=== PATIENT | male | born 1960 | race Caucasian/White ===

== ENCOUNTER → 2016-10-14 | Outpatient (CLI) | payer OTHER ==
--- NOTE | 2016-10-14 13:56 | US ---
EXAMINATION TYPE: US kidneys/renal and bladder DATE OF EXAM: 10/14/2016 1:37 PM COMPARISON: NONE CLINICAL HISTORY: Urinary Retention R33.9. Urinary retention, pt has in-dwelling catheter EXAM MEASUREMENTS: Right Kidney: 11.4 x 4.8 x 5.2 cm Left Kidney: 11.6 x 5.3 x 4.8 cm Right Kidney: wnl, no evidence of hydro Left Kidney: No evidence of hydro, possible two renal calculi at lower pole 6 & 7 mm in size Bladder: Cath in place There are 2 questionable nonobstructing calculi in the lower pole of the left kidney measuring 6 and 7 mm respectively. There is a 1.9 cm echogenic focus within the right lobe of the liver which may represent a small derian ngioma. IMPRESSION: 1. Questionable hemangioma within the right lobe of the liver. A CT scan of the abdomen or MR of the abdomen could BE performed to confirm this. 2. Nonobstructing left-sided nephrolithiasis.
== END | disposition home or self-care (01) ==
LOC: RADUSWWP 13:24
PROVIDERS: ATTEND Urology
DX: N20.0 Calculus of kidney (principal)
CPT/HCPCS: 76770

== ENCOUNTER → 2017-10-27 | Outpatient (CLI) | payer OTHER ==
--- NOTE | 2017-10-27 10:40 | CT ---
EXAMINATION TYPE: CT sinus wo con DATE OF EXAM: 10/27/2017 COMPARISON: NONE HISTORY: Sinusitis CT DLP: 632 mGycm. Automated Exposure Control for Dose Reduction was Utilized. TECHNIQUE: CT scan of the sinuses is performed without contrast, axial images are obtained, coronal r eformatted images are also reviewed. FINDINGS: The paranasal sinuses including the frontal, ethmoid, sphenoid, and maxillary sinuses bila terally are remarkable for mucosal thickening in the maxillary sinuses, some minimal lobular soft tis padmini at the inferior maxillary sinuses could represent inflammatory change or small polyps, ethmoid ai r cells, sphenoid sinus, frontal sinus are well aerated. The ostiomeatal complex is patent bilateral ly on the coronal images. Bailey bullosa present on the left. Visualized portion of mastoid air cells show no abnormal opacification. The globes are intact bilate rally. There is no erosion of the scutum, auditory ossicles show symmetric appearance. Temporomandib ular joints are intact. IMPRESSION: Mild inflammatory change as described.
== END | disposition home or self-care (01) ==
LOC: RADCTMAIN 08:38
PROVIDERS: ATTEND Family Medicine
DX: J32.9 Chronic sinusitis, unspecified (principal)
CPT/HCPCS: 70486

== ENCOUNTER → 2018-01-18 | Outpatient (CLI) | payer OTHER ==
--- NOTE | 2018-01-18 11:06 | US ---
EXAMINATION TYPE: US liver DATE OF EXAM: 01/18/2018 COMPARISON: Renal ultrasound 10/14/2016 CLINICAL HISTORY: Chronic Hep C B18.2. EXAM MEASUREMENTS: Liver Length: 14.9 cm Gallbladder Wall: 0.2 cm CBD: 0.4 cm Right Kidney: 12.2 x 4.0 x 4.8 cm Pancreas: Obscured by bowel gas Liver: Coarse, heterogeneous echotexture. Hypoechoic solid area visualized right lobe measuring 2.1 x 2.1 x 2.1 cm. Previous measured 2.2 x 1.9 x 1.9 cm on 10/14/2016 Gallbladder: Stones visualized Evidence for sonographic Person's sign: No CBD: wnl Right Kidney: No hydronephrosis or masses seen Heterogeneous hyperechoic liver is identified. No intrahepatic ductal dilatation is seen. Evaluation for focal masses suboptimal due to the heterogeneity. Technologist stuart 2.1 cm round hypoechoic lesi on on current study, previously visualized 2.2 cm hyperechoic lesion is not seen on images saved. Gallbladder redemonstrates small mobile shadowing stones. No suspicious wall thickening or surroundin g fluid is noted. IMPRESSION: 1. Redemonstration of gallstones without secondary ultrasound evidence for acute cholecystitis. 2. Redemonstration of heterogeneous hyperechoic appearance of liver which could reflect diffuse fatty infiltration or underlying hepatocellular disease. Newly visualized 2.0 cm hypoechoic possible solid lesion. Further investigation with liver protocol contrast enhanced CT or MRI is advised.
== END | disposition home or self-care (01) ==
LOC: RADUSWWP 09:51
PROVIDERS: ATTEND Internal Medicine Gastroenterology
DX: K80.20 Calculus of gallbladder without cholecystitis without obstruction (principal); B18.2 Chronic viral hepatitis C
CPT/HCPCS: 76705

== ENCOUNTER → 2018-03-17 | Outpatient (CLI) | payer OTHER ==
--- NOTE | 2018-03-19 01:48 | MR ---
EXAMINATION TYPE: MR liver wo/w con DATE OF EXAM: 03/17/2018 COMPARISON: None HISTORY: Liver lesion, Abn US CONTRAST: Standard multiplanar, multisequence MRI departmental protocol utilizing 10 mL intravenous Gadavist ga dolinium contrast. FINDINGS: There is a sharply marginated rounded 2 cm lesion in the right lobe of the liver. This is h igh signal on T2 images and shows some nodular peripheral enhancement on the contrast images. This is consistent with hemangioma. There is a small area of nodular enhancement also in the subcapsular pos terior right lobe of the liver this probably a 1 cm hemangioma. The delayed images show progressive e nhancement of the lesions. Pancreas appears normal. Spleen appears normal. There is no adrenal mass. Kidneys show satisfactory c ontrast opacification. There is no hydronephrosis. There is no retroperitoneal adenopathy. There is n o sign of ascites. There is no sign of pleural effusion. The bile ducts are not dilated. Gallbladder appears normal. IMPRESSION: There are 2 small liver lesions with features consistent with hemangioma.
== END ==
LOC: RADMRIMAIN 12:03
PROVIDERS: ATTEND Physician Assistant
DX: K76.9 Liver disease, unspecified (principal)
CPT/HCPCS: 74183; A9581

== ENCOUNTER → 2018-05-16 | Outpatient (CLI) | payer OTHER ==
[2018-05-16 13:10] LABS: Basophils # (A) 0.1 k/uL (0-0.2); Basophils % (A) 1 %; Eosinophils # (A) 0.2 k/uL (0-0.7); Eosinophils % (A) 3 %; HCT 46.2 % (39.0-53.0); HGB 15.4 gm/dL (13.0-17.5); Lymphocytes # (A) 2.1 k/uL (1.0-4.8); Lymphocytes % (A) 30 %; MCH 31.2 pg (25.0-35.0); MCHC 33.4 g/dL (31.0-37.0); MCV 93.6 fL (80.0-100.0); Mean Platelet Volume 7.1; Monocytes # (A) 0.4 k/uL (0-1.0); Monocytes % (A) 6 %; Neutrophils # (A) 4.1 k/uL (1.3-7.7); Neutrophils % (A) 57 %; Platelet Count 220 k/uL (150-450); RBC 4.94 m/uL (4.30-5.90); WBC 7.2 k/uL (3.8-10.6)
[2018-05-16 21:03] LABS: Albumin 4.6 g/dL (3.80-4.90); Bilirubin, Conjugated 0.2 mg/dL (0.20-0.40); Bilirubin,Unconjugated 0.5 mg/dL; Globulin 2.3 g/dL (2.1-3.7); Total Bilirubin 0.7 mg/dL (0.2-1.2); Total Protein 6.9 g/dL (6.2-8.2)
[2018-05-17 15:29] LABS: Hepatits C Virus RNA DETECTED (Not detected); Hepatits C Virus RNA, Quant 105 IU/mL (<12); LOG HCV IU/mL 2.02 (<1.08)
== END | disposition home or self-care (01) ==
LOC: LABWHC1 12:08
PROVIDERS: ATTEND Physician Assistant
DX: B18.2 Chronic viral hepatitis C (principal)
CPT/HCPCS: 36415; 80076; 85025; 87522

== ENCOUNTER → 2018-05-24 | Outpatient (CLI) | payer OTHER ==
--- NOTE | 2018-05-25 09:00 | US ---
EXAMINATION TYPE: US kidneys/renal and bladder DATE OF EXAM: 05/24/2018 COMPARISON: Right kidney on the ultrasound of CLINICAL HISTORY: N20.2 Calculus of kidney and ureter. h/o left renal stones, no symptoms EXAM MEASUREMENTS: Right Kidney: 11.3 x 5.3 x 4.9 cm Left Kidney: 11.4 x 4.5 x 6.2 cm Right Kidney: No hydronephrosis or masses seen Left Kidney: 2 echogenic foci seen inferior pole, 1.3cm and 1.4cm These are non-shadowing, other et iologies should be considered. These were present previously and 2017. Bladder: wnl Bilateral Jets seen: not seen IMPRESSION: Nonobstructing renal stones inferior pole left kidney.
== END | disposition home or self-care (01) ==
LOC: RADUSWWP 16:23
PROVIDERS: ATTEND Family Medicine
DX: N20.0 Calculus of kidney (principal)
CPT/HCPCS: 76770

== ENCOUNTER → 2018-05-28 | Outpatient (CLI) | payer OTHER ==
--- NOTE | 2018-05-28 09:37 | MR ---
EXAMINATION TYPE: MR lumbar spine wo con DATE OF EXAM: 05/28/2018 9:23 AM COMPARISON: NONE HISTORY: Back pain Multiplanar, MultiSpin echo imaging of the lumbar spine was performed. L1-L2: Normal disc appearance without desiccation. No herniation, protrusion or disc bulging. No ca nal stenosis is present. Foramina are patent bilaterally. L2-L3: Normal disc appearance without desiccation. No herniation, protrusion or disc bulging. No ca nal stenosis is present. Foramina are patent bilaterally. L3-L4: Normal disc appearance without desiccation. No herniation, protrusion or disc bulging. No ca nal stenosis is present. Foramina are patent bilaterally. L4-L5: Moderate disc desiccation noted. Posterocentral disc bulge with annular tear. Mild effacement ventral thecal sac. No evidence for central stenosis or lateral recess stenosis. Visualized foramina are patent. Mild facet joint arthropathy. L5-S1: Moderate disc desiccation noted. Left paracentral disc protrusion results in left lateral rece ss stenosis. No central stenosis. Visualized foramina are patent bilaterally. Facet joint arthropathy noted. Lumbar segments are intact. No paraspinal masses are identified. Conus medullaris has a normal appe arance. IMPRESSION: 1. Degenerative disc disease as noted. 2. Left paracentral disc protrusion L5-S1 resulting in left lateral recess stenosis.
== END ==
LOC: RADMRIMAIN 08:48
PROVIDERS: ATTEND Family Medicine
DX: M51.17 Intervertebral disc disorders with radiculopathy, lumbosacral region (principal)
CPT/HCPCS: 72148

== ENCOUNTER → 2018-08-10 | Outpatient (CLI) | payer OTHER ==
--- NOTE | 2018-08-10 14:46 | XR ---
Abdomen HISTORY: Left-sided pain, calculus of kidney Frontal view of the abdomen on 2 images, no comparisons There is a partial staghorn calculus is suspected at the lower pole of the left kidney measuring appr oximately 2.2 x 1.2 cm. Lung bases are not included on exam. Scattered calcifications are present wit hin the pelvis. No pneumoperitoneum or bowel obstruction. Bone mineralization is normal. Slight spina l curvature. IMPRESSION: Left-sided nephrolithiasis.
== END ==
LOC: RADXRMAIN 09:31
PROVIDERS: ATTEND Urology
DX: N20.0 Calculus of kidney (principal)
CPT/HCPCS: 74018

== ENCOUNTER → 2018-09-17 | Outpatient (CLI) | payer OTHER ==
--- NOTE | 2018-09-17 08:46 | XR ---
EXAMINATION TYPE: XR KUB DATE OF EXAM: 09/17/2018 HISTORY: Pain Comparison: 08/10/2018. Single KUB is submitted for interpretation. Findings: Right renal calculi: None Visualized. Right ureteral calculi: None Visualized. Left renal calculi: Multiple fragmented calcifications are seen lower pole left kidney small in size and on prior examination. Left ureteral calculi: Interval calcifications noted left distal ureter. Calcifications total approx imately 5-6 in number. Pelvic calcifications: None Visualized. Bowel gas pattern is unremarkable. No free air. No mass effects. IMPRESSION: 1. Suspect interval lithotripsy with multiple smaller fragmented calcifications lower pole left kidne y relative to prior examination. Also distal left ureteral calculi identified. Correlate clinically.
== END ==
LOC: RADXRMAIN 08:11
PROVIDERS: ATTEND Family Medicine
DX: N20.1 Calculus of ureter (principal)
CPT/HCPCS: 74018

== ENCOUNTER 2018-09-24 09:58 | Day surgery (SDC) | payer OTHER ==
[2018-09-20 14:05] VITALS: BMI 30.3
[~2018-09-24 09:58] MED LIST: LACTATED RINGERS 1,000 ML IV SCH; LIDOCAINE 1% 20 ML VIAL (10MG/ML) FOR IV START INTRADERMA PRN; MIDAZOLAM (PF) 2 MG/2 ML VIAL IV PRN
[2018-09-24 10:22] VITALS: TEMP 98.5
[2018-09-24] MEDS ORDERED: LIDOCAINE 1% INJ 10MG/ML (20 ML MDV) ONE (11:41)
[2018-09-24] MEDS ORDERED: PROPOFOL 10 MG/ML 20 ML VIAL IV ONE (11:41)
--- NOTE | 2018-09-24 12:13 | P.PCN ---
Date of Procedure: 09/24/18 Procedure(s) Performed: Procedure: Total colonoscopy and biopsy. Preoperative diagnosis: Screening for neoplasia. Postoperative diagnosis: 1. Mild diverticulosis with no evidence of acute diverticulitis or strictures. 2. Diminutive rectal polyp biopsied, but no large polyps or cancer. Preparation: HalfLytely prep. Sedation: Was provided by anesthesia. Brief clinical history: The patient is a 58-year-old male who is scheduled for this evaluation for screening for neoplasia age being his risk factor. He had no prior exam. The patient has no abdominal complaints, bleeding or anemia. There is family history of cancer in both parents but is not sure if it was colon cancer or not. Procedure: With the patient on his left lateral decubitus position and after informed consent and adequate sedation, the perianal area was inspected and it did not show any fissures or fistulas. There were no masses felt on digital rectal examination. The Olympus CFH 190L video colonoscope was then inserted in the rectum in the usual fashion and advanced to the cecum. The mucosa appeared healthy. A diminutive polyp was seen in the rectum close to the anorectal junction which was biopsied, but there were no large polyps or tumors. There was occasional diverticular orifices noted on the right side and on the sigmoid with no evidence of acute diverticulitis or strictures. I retroflexed the endoscope in the rectum before the endoscope was withdrawn. The patient tolerated the procedure well. Plan: The patient was reassured. Discussed dietary measures. He will follow up with you as planned and I recommended repeat exam in 5 years.
[2018-09-24 12:47] VITALS: BP 144/91; PULSE 60; RESP 16
== END 2018-09-24 13:02 | disposition home or self-care (01) ==
LOC: ORWHC2ENDO 09:58
DX: Z12.11 Encounter for screening for malignant neoplasm of colon (principal); K57.90 Diverticulosis of intestine, part unspecified, without perforation or abscess without bleeding; K62.1 Rectal polyp; Z80.9 Family history of malignant neoplasm, unspecified; Z86.73 Personal history of transient ischemic attack (TIA), and cerebral infarction without residual deficits; K21.9 Gastro-esophageal reflux disease without esophagitis; G43.909 Migraine, unspecified, not intractable, without status migrainosus; Z85.46 Personal history of malignant neoplasm of prostate
CPT/HCPCS: 88305; 45380; J2001; J2704

== ENCOUNTER → 2018-10-04 | Outpatient (CLI) | payer OTHER ==
--- NOTE | 2018-10-04 08:22 | CT ---
EXAMINATION TYPE: CT sinus wo con DATE OF EXAM: 10/04/2018 COMPARISON: 10/27/2017 HISTORY: 58-year-old male acute sinusitis, Sinus headaches CT DLP: 624 mGycm Automated exposure control for dose reduction was used. TECHNIQUE: Noncontrast axial views of the paranasal sinuses were obtained. Coronal reconstructions pe rformed. FINDINGS: PARANASAL SINUSES: Trace mucosal thickening along the floors of the maxillary sinuses and along the region of the bilate ral maxillary antra. Additional trace mucosal thickening within the ethmoid air cells. The frontal and sphenoid sinuses are well pneumatized. There is no air-fluid level. Reactive lynette- osteogenesis is not seen. There is no destruction of the osseous pulido of the paranasal sinuses. THE NASAL CAVITY: The osteomeatal complexes are patent. The nasal septum shows slight undulation. The imaged brain shows mild generalized cortical atrophy. Orbits are normal in appearance. Mastoid air cells and middle ear cavities are well pneumatized. Reformatted images confirm above findings. IMPRESSION: Trace chronic maxillary and ethmoid sinus disease. No air-fluid level to suggest acute sinusitis.
== END | disposition home or self-care (01) ==
LOC: RADCTMAIN 07:53
PROVIDERS: ATTEND Family Medicine
DX: J01.90 Acute sinusitis, unspecified (principal)
CPT/HCPCS: 70486

== ENCOUNTER → 2018-10-18 | Outpatient (CLI) | payer OTHER ==
--- NOTE | 2018-10-18 09:53 | XR ---
EXAMINATION TYPE: XR KUB DATE OF EXAM: 10/18/2018 COMPARISON: 09/17/2018 HISTORY: Post lithotripsy TECHNIQUE: One view abdominal series FINDINGS: The osseous structures are intact. The bowel gas pattern is nonspecific. Hypertrophic spurring of th e vertebral column noted. Left kidney: There are greater than 10 fragment seen involving the lower pole of the left kidney with numerous renal calculi largest measuring approximately 4 mm in diameter. Appears to be fragmentation relative to the prior exam. Right kidney: No suspicious calcific Pelvis: Calcifications in the pelvis appear to be predominantly related to vascular phleboliths. De Leon jen, there is one calcification seen within the left hemipelvis which may be the level of the left UV J measuring a diameter 3 mm. Additional calcifications in the lower pelvis may overlie prostate or po ssibly related to bladder calculi. Metallic density overlying the left inferior pubic ramus may be superficial to the patient rather tonio n foreign body correlate clinically. IMPRESSION: 1. There are greater than 10 calcifications seen involving the lower pole left kidney which appear to be fragmented relative to the prior exam. 2. No suspicious calcifications within the mid or proximal ureter. 3. There is a new calcification measuring 3 mm in diameter at the expected location of the left UVJ.
== END | disposition home or self-care (01) ==
LOC: RADXRMAIN 08:33
PROVIDERS: ATTEND Urology
DX: N20.0 Calculus of kidney (principal)
CPT/HCPCS: 74018

== ENCOUNTER → 2018-11-20 | Outpatient (CLI) | payer OTHER ==
--- NOTE | 2018-11-20 10:17 | XR ---
KUB HISTORY: Left-sided kidney stone Frontal KUB on 2 images correlated to prior KUB 10/18/2018 Calcifications are present overlying the lower pole left kidney similar to prior exam. Largest fragme nt measures approximately 6 mm. There may be 6 or 7 fragments present at this level which is likely r educed in number. Multiple calcifications are present within the pelvis similar which are no longer s een as compared to prior exam. IMPRESSION: Interval lithotripsy.
== END | disposition home or self-care (01) ==
LOC: RADXRMAIN 09:46
PROVIDERS: ATTEND Urology
DX: N20.0 Calculus of kidney (principal); Z98.890 Other specified postprocedural states
CPT/HCPCS: 74018

== ENCOUNTER → 2018-11-21 | Outpatient (CLI) | payer OTHER ==
[2018-11-21 11:57] LABS: African American GFR (CKD) >90 (>60 ml/min/1.73 sqM); Anion Gap 7 mmol/L; Blood Urea Nitrogen 20 mg/dL (9-20); Calcium 9.7 mg/dL (8.4-10.2); Carbon Dioxide 28 mmol/L (22-30); Chloride 105 mmol/L (98-107); Glucose 107 mg/dL (74-99); Potassium 4.9 mmol/L (3.5-5.1); Sodium 140 mmol/L (137-145)
[2018-11-21 12:28] LABS: HCT 43.9 % (39.0-53.0); HGB 14.5 gm/dL (13.0-17.5); MCH 30.4 pg (25.0-35.0); Mean Platelet Volume 7.4; Platelet Count 191 k/uL (150-450); RBC 4.77 m/uL (4.30-5.90); RDW 13.4 % (11.5-15.5); WBC 7.9 k/uL (3.8-10.6)
[2018-11-21 12:59] LABS: Eosinophils # (M) 0.47 k/uL (0-0.7); Lymphocytes # (M) 3.08 k/uL (1.0-4.8); Monocytes # (M) 0.55 k/uL (0-1.0); Neutrophils # (M) 3.79 k/uL (1.3-7.7); Neutrophils % (M) 48 %; Nucleated Red Blood Cells 0 /100 WBC (0-0); Total Cells Counted 100
== END | disposition home or self-care (01) ==
LOC: LABPAT 10:46
PROVIDERS: ATTEND Urology
DX: Z01.812 Encounter for preprocedural laboratory examination (principal); N20.0 Calculus of kidney
CPT/HCPCS: 36415; 80048; 85025

== ENCOUNTER 2018-11-26 07:05 | Day surgery (SDC) | payer OTHER ==
[2018-11-22 09:46] VITALS: BMI 30.3
--- NOTE | 2018-11-22 17:23 | P.GSHP ---
History of Present Illness H&P Date: 11/22/18 Chief Complaint: Left flank pain The patient is a 58-year-old white female who presented with left flank pain. A KUB x-ray showed a 12 x 22 mm left lower pole renal calculus. He underwent ESWL on 09/10/2018. He has passed multiple calculus fragments. The calculus was com posed predominately of calcium oxalate monohydrate. He is now asymptomatic. The most recent KUB x-ray shows a 6 x 10 mm left lower pole renal fragment, and he has elected to undergo repeat ESWL. - Constitutional Constitutional: Denies chills, Denies fever - Genitourinary (Male) Genitourinary: Denies dysuria, Denies flank pain, Denies hematuria Past Medical History Past Medical History: CVA/TIA, GERD/Reflux, Prostate Disorder Additional Past Medical History / Comment(s): migraines, "stroke 7 yrs ago-did not go to hospital"-no residual effects, hx kidney stones History of Any Multi-Drug Resistant Organisms: None Reported Past Surgical History: Back Surgery Additional Past Surgical History / Comment(s): back surgery x2, "lithotripsy to remove kidney stones" Past Anesthesia/Blood Transfusion Reactions: No Reported Reaction Smoking Status: Former smoker - Past Family History Mother Family Medical History: Cancer Father Family Medical History: Cancer Medications and Allergies Home Medications Medication Instructions Recorded Confirmed Type Cholecalciferol [Vitamin D3] 5,000 unit PO DAILY 09/20/18 11/22/18 History Doxazosin [Cardura] 4 mg PO DAILY 09/20/18 11/22/18 History Multivitamins, Thera [Multivitamin 1 tab PO DAILY 09/20/18 11/22/18 History (formulary)] Magnesium Gluconate [Magonate] 500 mg PO DAILY 11/22/18 11/22/18 History Allergies Allergy/AdvReac Type Severity Reaction Status Date / Time No Known Allergies Allergy Verified 11/22/18 09:32 Surgical - Exam - General well developed, well nourished, no distress - Respiratory normal respiratory effort - Abdomen Abdomen: soft, non tender, no guarding, no rigid, no rebound - Genitourinary normal penis with no external lesions, testicles non-tender - Psychiatric oriented to time, oriented to person, oriented to place, speech is normal, memory intact Assessment and Plan (1) Calculus of kidney Status: Acute Code(s): N20.0 - CALCULUS OF KIDNEY SNOMED Code(s): 70802999 Plan: Left extracorporal shockwave lithotripsy (ESWL). The understood by the patient. He understands potential risks to include anesthesia, renal contusion, perinephric hematoma, incomplete fragmentation, and Steinstrasse. He is also aware of the possible need for additional treatments.
[~2018-11-26 07:05] MED LIST changes: -LIDOCAINE 1% 20 ML VIAL (10MG/ML) FOR IV START INTRADERMA PRN; -MIDAZOLAM (PF) 2 MG/2 ML VIAL IV PRN
--- NOTE | 2018-11-26 07:23 | XR ---
EXAMINATION TYPE: XR KUB DATE OF EXAM: 11/26/2018 CLINICAL DATA: 58 year-old male kidney stones, preop for lithotripsy, [facility] COMPARISON: 11/20/2018 FINDINGS: Nonobstructive bowel gas pattern. Mild to moderate stool burden. Left-sided nephrolithiasis redemonstrated with calculi measuring 7 mm and 5 mm. Additional tiny clust er is present just above. Multiple pelvic phleboliths. IMPRESSION: Left-sided nephrolithiasis redemonstrated measuring up to 7 mm.
[2018-11-26] MEDS ORDERED: LIDOCAINE 1% 20 ML VIAL (10MG/ML) FOR IV START INTRADERMA ONE (07:36)
[2018-11-26] MEDS ORDERED: LACTATED RINGERS 1,000 ML IV ONE (07:38)
[2018-11-26] MEDS ORDERED: fentaNYL (PF) 50 MCG/ML 2 ML AMP ONE (08:42)
[2018-11-26] MEDS ORDERED: MIDAZOLAM 2 MG/2 ML VIAL ONE (08:42)
[2018-11-26] MEDS ORDERED: PROPOFOL 10 MG/ML 20 ML VIAL IV ONE (08:42)
[2018-11-26] MEDS ORDERED: SUCCINYLCHOLINE CHLORIDE 100 MG/5 ML SYR IV ONE (08:42)
[2018-11-26] MEDS ORDERED: ONDANSETRON 4 MG/2 ML VIAL ONE (08:42)
--- NOTE | 2018-11-26 09:31 | P.OP ---
Date of Procedure: 11/26/18 Preoperative Diagnosis: Left renal calculi Postoperative Diagnosis: Same Procedure(s) Performed: Left extracorporeal shockwave lithotripsy (ESWL) Anesthesia: JAISON Surgeon: Gen Ventura Estimated Blood Loss (ml): 0 IV fluids (ml): 400 Pathology: none sent Condition: stable Disposition: PACU Indications for Procedure: The patient is a 58-year-old white female who presented with left flank pain. A KUB x-ray showed a 12 x 22 mm left lower pole renal calculus. He underwent ESWL on 09/10/2018. He has passed multiple calculus fragments. The calculus was composed predominately of calcium oxalate monohydrate. He is now asymptomatic. The most recent KUB x-ray shows a 5 x 7 mm left lower pole renal fragment, as well as a smaller mid pole fragment. He has elected to undergo repeat ESWL. Operative Findings: Excellent fragmentation. Description of Procedure: The patient was taken to the operating room and placed on the Dornier Compact Delta II lithotripter in the supine position. The calculi were seen on biplanar fluoroscopy. Once the patient was properly positioned and sedated, lithotripsy was performed. The energy level was gradually increased per protocol, to an energy level of 5. After 200 shocks were administered, a 2 minute pause was instituted per protocol. A total of 2500 shocks were given at a rate of 80 shocks per minute. Fluoroscopy was utilized at a minimum to ensure proper positioning and determine the treatment status. The lower pole calculus was initially treated, and when this was no longer visible the mid pole calculus was treated. This also appeared to fragment. The patient tolerated the procedure well was taken to the recovery room in stable condition. Instructions were given to strain the urine, and the patient will follow-up within one week.
[2018-11-26 09:52] VITALS: TEMP 97
[2018-11-26 10:05] VITALS: RESP 16
[2018-11-26] MEDS ORDERED: HYDROcodone/APAP 5-325MG 1 EACH TAB PO ONE (10:26)
[2018-11-26 10:27] VITALS: BP 144/92; PULSE 48
== END 2018-11-26 10:58 | disposition home or self-care (01) ==
LOC: ORWHC2ENDO 07:05
PROVIDERS: ATTEND Urology
DX: N20.0 Calculus of kidney (principal); K21.9 Gastro-esophageal reflux disease without esophagitis; G43.909 Migraine, unspecified, not intractable, without status migrainosus; Z87.442 Personal history of urinary calculi; N40.0 Benign prostatic hyperplasia without lower urinary tract symptoms; Z86.73 Personal history of transient ischemic attack (TIA), and cerebral infarction without residual deficits; Z79.899 Other long term (current) drug therapy
CPT/HCPCS: 74018; 50590; J2250; J2405; J3010; J0330; J2704

== ENCOUNTER → 2018-12-03 | Outpatient (CLI) | payer OTHER ==
--- NOTE | 2018-12-03 12:25 | XR ---
KUB HISTORY: Myelopathy, left kidney stones follow-up. KUB on 2 images Multiple calcifications are seen overlying the lower pole of the left kidney, largest measures approx imately 5 mm, additional calcification measures 3 mm and the smaller measuring 2 mm. May be an additi onal 2 mm calcification, additional 1 mm calcification. Lung bases are clear. No evident pneumoperitoneum or bowel obstruction. Degenerative disc changes are present in the visualized spine. Multiple calcifications are again noted within the pelvis, there ma y be bladder stones as well as vascular calcifications, prostate calcifications. IMPRESSION: Probable interval lithotripsy with fragmentation of the calcifications in the lower pole left kidney.
== END | disposition home or self-care (01) ==
LOC: RADXRMAIN 08:45
PROVIDERS: ATTEND Urology
DX: N20.0 Calculus of kidney (principal)
CPT/HCPCS: 74018

== ENCOUNTER → 2019-11-01 | Outpatient (CLI) | payer OTHER ==
--- NOTE | 2019-11-01 15:33 | XR ---
EXAMINATION TYPE: XR KUB DATE OF EXAM: 11/01/2019 COMPARISON: 12/03/2018 HISTORY: Left-sided kidney stone TECHNIQUE: Abdomen in the frontal projection FINDINGS: Suspicious calcifications are identified. Previous suspected inferior pole left renal stone s are not evident. Psoas margins are normal. Organomegaly is not evident. Normal bowel gas is present . Stable appearing phleboliths within the pelvis. IMPRESSION: 1. No suspicious left-sided renal stones are identified.
== END | disposition home or self-care (01) ==
LOC: RADXRMAIN 15:00
PROVIDERS: ATTEND Urology
DX: N20.0 Calculus of kidney (principal)
CPT/HCPCS: 74018

== ENCOUNTER → 2019-11-06 | Outpatient (CLI) | payer OTHER ==
--- NOTE | 2019-11-06 11:16 | CT ---
EXAMINATION TYPE: CT abdomen pelvis wo con DATE OF EXAM: 11/06/2019 COMPARISON: None HISTORY: Hematuria with clots. CT DLP: 898.3 mGycm Examination of the solid and hollow viscera is limited given the lack of contrast. FINDINGS: LUNG BASES: No evidence for nodule. No evidence for infiltrate. LIVER/GB: Suggestion of hepatic steatosis. The gallbladder is unremarkable. No space-occupying hepati c lesion. PANCREAS: No pancreatic mass identified. No inflammatory process seen. SPLEEN: No evidence for splenomegaly. No intrasplenic lesions seen. ADRENALS: No adrenal nodules identified. No evidence for thickening. KIDNEYS: There is an 9.9 mm calculus within the urinary bladder to the left of midline. There is latricia cent urinary bladder wall thickening. No renal lesions seen. No hydronephrosis identified at this chavo e. BOWEL: Appendix has a normal appearance. No evidence of bowel obstruction. No inflammatory process. Lymph nodes: No evidence for adenopathy greater than 1 cm. Abdominal aorta: Atheromatous changes seen. No evidence for aneurysm. Genital organs: Prostate gland enlargement identified. Other: No significant abnormality. IMPRESSION: 1.There is an 9.9 mm calculus within the urinary bladder to the left of midline. There is adjacent ur inary bladder wall thickening.
== END | disposition home or self-care (01) ==
LOC: RADCTMAIN 10:00
PROVIDERS: ATTEND Urology
DX: N21.0 Calculus in bladder (principal)
CPT/HCPCS: 74176

== ENCOUNTER → 2019-11-18 | Outpatient (CLI) | payer OTHER ==
[2019-11-18 11:10] LABS: Calcium 9.7 mg/dL (8.4-10.2); Potassium 4.8 mmol/L (3.5-5.1)
[2019-11-18 11:37] LABS: Basophils # (A) 0.1 k/uL (0-0.2); Basophils % (A) 1 %; Eosinophils # (A) 0.2 k/uL (0-0.7); Eosinophils % (A) 3 %; HCT 44.5 % (39.0-53.0); Lymphocytes # (A) 2.4 k/uL (1.0-4.8); Lymphocytes % (A) 31 %; MCH 31.1 pg (25.0-35.0); MCHC 33.7 g/dL (31.0-37.0); MCV 92.3 fL (80.0-100.0); Mean Platelet Volume 8.9; Monocytes # (A) 0.5 k/uL (0-1.0); Monocytes % (A) 7 %; Neutrophils # (A) 4.2 k/uL (1.3-7.7); Neutrophils % (A) 54 %; Platelet Count 187 k/uL (150-450); RBC 4.83 m/uL (4.30-5.90); RDW 13.9 % (11.5-15.5); WBC 7.7 k/uL (3.8-10.6)
== END | disposition home or self-care (01) ==
LOC: LABPAT 09:35
PROVIDERS: ATTEND Urology
DX: Z01.818 Encounter for other preprocedural examination (principal); N21.0 Calculus in bladder
CPT/HCPCS: 36415; 80048; 85025

== ENCOUNTER 2019-11-20 12:57 | Day surgery (SDC) | payer OTHER ==
[2019-11-19 09:20] VITALS: BMI 30.9
--- NOTE | 2019-11-19 13:05 | P.GSHP ---
History of Present Illness H&P Date: 11/19/19 Chief Complaint: Gross hematuria The patient is a 59-year-old white female who presented last year with left flank pain. A KUB x-ray showed a 12 x 22 mm left lower pole renal calculus. He underwent ESWL on 09/10/2018. He has passed multiple calculus fragments. The calculus was composed predominately of calcium oxalate monohydrate. He subsequently underwent repeat ESWL to treat a 6 x 10 mm left lower pole renal fragment. He has recently experienced left flank discomfort and gross hematuria. A computed tomography scan of the abdomen and pelvis revealed no kidney stones. However, a 1 cm bladder calculus was seen, and he now comes for cystolithotripsy. - Constitutional Constitutional: Denies chills, Denies fever - Genitourinary (Female) Genitourinary: Reports flank pain, Reports hematuria, Reports kidney stones Past Medical History Past Medical History: CVA/TIA, Prostate Disorder Additional Past Medical History / Comment(s): "stroke 7-8 yrs ago-did not go to hospital"-states no residual effects, hx kidney stones, bladder stone, History of Any Multi-Drug Resistant Organisms: None Reported Past Surgical History: Back Surgery Additional Past Surgical History / Comment(s): back surgery x2 for herniated disk/bone splinter, lithotripsy x 2 Past Anesthesia/Blood Transfusion Reactions: No Reported Reaction Smoking Status: Former smoker - Past Family History Mother Family Medical History: Cancer Father Family Medical History: Cancer Medications and Allergies Home Medications Medication Instructions Recorded Confirmed Type Doxazosin [Cardura] 4 mg PO HS 09/20/18 11/19/19 History Acetaminophen [Tylenol Extra 500 mg PO DIRECTED PRN 11/19/19 11/19/19 History Strength] Allergies Allergy/AdvReac Type Severity Reaction Status Date / Time No Known Allergies Allergy Verified 11/19/19 09:09 Surgical - Exam - General well developed, well nourished, no distress - Respiratory normal respiratory effort - Abdomen Abdomen: soft, non tender, no guarding, no rigid, no rebound - Genitourinary normal penis with no external lesions, testicles non-tender - Rectum Rectum: normal sphincter tone, no masses, other (Prostate moderately enlarged but smooth) - Psychiatric oriented to time, oriented to person, oriented to place, speech is normal, memory intact Assessment and Plan (1) Calculus in bladder Status: Acute Code(s): N21.0 - CALCULUS IN BLADDER SNOMED Code(s): 04987439 Plan: Cystoscopy with cystolithotripsy. The procedure has been reviewed in detail wit h the patient. Risks were reviewed, which include anesthesia, bleeding, infection, bladder perforation, and postoperative voiding difficulty.
[~2019-11-20 12:57] MED LIST changes: +HYDROmorphone 0.5 MG/0.5 ML SYRINGE IVP PRN
[2019-11-20] MEDS ORDERED: LIDOCAINE 1% (10MG/ML) FOR IV START INTRADERMA ONE (13:33)
[2019-11-20] MEDS ORDERED: ONDANSETRON 4 MG/2 ML VIAL IVP ONE (13:35)
[2019-11-20] MEDS ORDERED: DEXAMETHASONE SOD PHOSPHATE 10 MG/ML 1 ML VIAL IV ONE (13:35)
[2019-11-20] MEDS ORDERED: PROPOFOL 10 MG/ML 20 ML VIAL IV ONE (14:45)
[2019-11-20] MEDS ORDERED: LIDOCAINE 1% INJ 10MG/ML (20 ML MDV) ONE (14:45)
[2019-11-20] MEDS ORDERED: fentaNYL (PF) 50 MCG/ML 2 ML AMP ONE (14:45)
[2019-11-20] MEDS ORDERED: MIDAZOLAM 2 MG/2 ML VIAL ONE (14:45)
[2019-11-20] MEDS ORDERED: SUCCINYLCHOLINE CHLORIDE 100 MG/5 ML SYR IV ONE (14:45)
--- NOTE | 2019-11-20 15:17 | P.OP ---
Date of Procedure: 11/20/19 Preoperative Diagnosis: Bladder calculus Postoperative Diagnosis: Same Procedure(s) Performed: Cystoscopy Anesthesia: JAISON Surgeon: Gen Ventura Estimated Blood Loss (ml): 0 IV fluids (ml): 300 Pathology: none sent Condition: stable Disposition: PACU Indications for Procedure: The patient is a 59-year-old white female who presented last year with left flank pain. A KUB x-ray showed a 12 x 22 mm left lower pole renal calculus. He underwent ESWL on 09/10/2018. He has passed multiple calculus fragments. The calculus was composed predominately of calcium oxalate monohydrate. He subsequently underwent repeat ESWL to treat a 6 x 10 mm left lower pole renal fragment. He has recently experienced left flank discomfort and gross hematuria. A computed tomography scan of the abdomen and pelvis revealed no kidney stones. However, a 1 cm bladder calculus was seen, and he now comes for cystolithotripsy. Operative Findings: 1) No bladder calculus seen. 2) BPH with obstruction. Description of Procedure: The patient was taken to the operating room and placed in the dorsal lithotomy position, with legs supported in Antonio stirrups. The external genitalia was prepped and draped sterilely. The 30 lens was used to introduce the 22-Polish Stortz cystoscopic sheath through the urethra and into the bladder under direct vision. The urethra appeared normal. The prostate showed evidence of considerable lateral lobe enlargement along with a small median lobe. The prostate was visually occluded, and measured 4 cm in length. The bladder was examined in its entirety. The ureteral orifices appeared normal. No calculi were seen. No tumors were seen. Several small diverticuli were seen, as the bladder was moderately trabeculated. There is apparent that the patient passed his calculus. The bladder was emptied and the cystoscope removed. The patient tolerated the procedure well was taken to the recovery room in stable condition.
[2019-11-20 15:27] VITALS: TEMP 97.7
[2019-11-20 15:48] VITALS: RESP 16
[2019-11-20 16:19] VITALS: BP 130/85; PULSE 57
== END 2019-11-20 16:35 | disposition home or self-care (01) ==
LOC: OR 12:57
PROVIDERS: ATTEND Urology
DX: N21.0 Calculus in bladder (principal); N40.1 Benign prostatic hyperplasia with lower urinary tract symptoms; N13.8 Other obstructive and reflux uropathy; Z87.442 Personal history of urinary calculi; Z86.73 Personal history of transient ischemic attack (TIA), and cerebral infarction without residual deficits; Z98.890 Other specified postprocedural states; Z87.891 Personal history of nicotine dependence; Z80.9 Family history of malignant neoplasm, unspecified; Z79.899 Other long term (current) drug therapy
CPT/HCPCS: 52000; J2250; J1100; J0690; J2405; J2001; J3010; J0330; J2704

== ENCOUNTER 2020-02-02 11:04 | Emergency (ER) | payer OTHER ==
[2020-02-02 11:09] VITALS: BP 138/83; PULSE 84; RESP 18; TEMP 98.5
[2020-02-02] MEDS ORDERED: LIDOCAINE URO-JET JELLY 2% 5 ML KIT URETHRAL ONE (11:32)
--- NOTE | 2020-02-02 11:41 | ED ---
Male Urogenital HPI - General Chief complaint: Urogenital Stated complaint: trouble urinating Time Seen by Provider: 02/02/20 11:11 Source: patient, RN notes reviewed Mode of arrival: ambulatory Limitations: no limitations - History of Present Illness Initial comments: 59-year-old male presents emergency Department chief complaint of difficulty urinating. Patient states that he's had difficulty urinating less days. He states that is has very little output. Patient states he does have some known prostate issues in which he is on Cardura. Patient states he is able to urinate a small amount states he centimeters ago. Patient states that he felt every few minutes trying to go. Patient states his abdomen feels distended. Patient offers no complaints denies fevers, chills, diarrhea, constipation, chest pain or shortness breath. - Related Data Home Medications Medication Instructions Recorded Confirmed Doxazosin [Cardura] 4 mg PO HS 09/20/18 11/20/19 Acetaminophen [Tylenol Extra 500 mg PO DIRECTED PRN 11/19/19 11/20/19 Strength] Allergies Allergy/AdvReac Type Severity Reaction Status Date / Time No Known Allergies Allergy Verified 02/02/20 11:09 Review of Systems ROS Statement: Those systems with pertinent positive or pertinent negative responses have been documented in the HPI. ROS Other: All systems not noted in ROS Statement are negative. Past Medical History Past Medical History: CVA/TIA, GERD/Reflux, Prostate Disorder Additional Past Medical History / Comment(s): migraines, "stroke 7 yrs ago-did not go to hospital"-no residual effects, hx kidney stones History of Any Multi-Drug Resistant Organisms: None Reported Past Surgical History: Back Surgery Additional Past Surgical History / Comment(s): back surgery x2, "lithotripsy to remove kidney stones" Past Anesthesia/Blood Transfusion Reactions: No Reported Reaction Past Psychological History: No Psychological Hx Reported Smoking Status: Never smoker Past Alcohol Use History: Rare Additional Past Alcohol Use History / Comment(s): smoker off and on since age 13 1997 Past Drug Use History: None Reported - Past Family History Mother Family Medical History: Cancer Father Family Medical History: Cancer General Exam Limitations: no limitations General appearance: alert, in no apparent distress Head exam: Present: atraumatic, normocephalic, normal inspection Respiratory exam: Present: normal lung sounds bilaterally. Absent: respiratory distress, wheezes, rales, rhonchi, stridor Cardiovascular Exam: Present: regular rate, normal rhythm, normal heart sounds. Absent: systolic murmur, diastolic murmur, rubs, gallop, clicks GI/Abdominal exam: Present: soft, distended, tenderness, normal bowel sounds. Absent: guarding, rebound, rigid Back exam: Absent: CVA tenderness (R), CVA tenderness (L) Neurological exam: Present: alert, oriented X3 Skin exam: Present: warm, dry, intact, normal color. Absent: rash Course Vital Signs 02/02/20 11:05 Temperature 98.5 F Pulse Rate 84 Respiratory 18 Rate Blood Pressure 138/83 O2 Sat by Pulse 93 L Oximetry Medical Decision Making - Medical Decision Making Patient presented for urinary retention. Patient did have full catheter placed and 1200 and also urine output. Patient states he feels greatly improved. Urinalysis unremarkable. Patient has known BPH and will follow-up with Dr. Ventura his urologist. - Lab Data Lab Results 02/02/20 Range/Units 11:40 Urine Color Yellow Urine Appearance Clear (Clear) Urine pH 5.0 (5.0-8.0) Ur Specific [place] 1.014 (1.001-1.035) Urine Protein Negative (Negative) Urine Glucose (UA) Negative (Negative) Urine Ketones Negative (Negative) Urine Blood Negative (Negative) Urine Nitrite Negative (Negative) Urine Bilirubin Negative (Negative) Urine Urobilinogen <2.0 (<2.0) mg/dL Ur Leukocyte Esterase Negative (Negative) Disposition Clinical Impression: Urinary retention due to benign prostatic hyperplasia Disposition: HOME SELF-CARE Condition: Stable Instructions (If sedation given, give patient instructions): Urinary Retention in Men (ED) Additional Instructions: Please return to the Emergency Department if symptoms worsen or any other concerns. Is patient prescribed a controlled substance at d/c from ED?: No Referrals: Dennys Francisco MD [Primary Care Provider] - 1-2 days Gen Ventura MD [Family Provider] - 1-2 days Time of Disposition: 12:00
[2020-02-02 11:48] LABS: Appearance,Urine Clear (Clear); Bilirubin,Urine Negative (Negative); Blood,Urine Negative (Negative); Color,Urine Yellow; Glucose,Urine (UA) Negative (Negative); Ketones,Urine Negative (Negative); Leukocyte Esterase,Urine Negative (Negative); Nitrite,Urine Negative (Negative); Protein,Urine Negative (Negative); Specific Gravity,Urine 1.014 (1.001-1.035); Urobilinogen,Urine <2.0 mg/dL (<2.0)
== END 2020-02-02 12:11 | disposition home or self-care (01) ==
LOC: EC 11:04
DX: N40.1 Benign prostatic hyperplasia with lower urinary tract symptoms (principal); R33.8 Other retention of urine; Z79.899 Other long term (current) drug therapy; Z86.73 Personal history of transient ischemic attack (TIA), and cerebral infarction without residual deficits; Z87.891 Personal history of nicotine dependence; Z87.442 Personal history of urinary calculi
CPT/HCPCS: 51798; 81003; 99283

== ENCOUNTER → 2020-08-10 | Outpatient (CLI) | payer OTHER | END | disposition home or self-care (01) | LOC: LABWHC1 13:17 | PROVIDERS: ATTEND Urology | DX: R35.1 Nocturia (principal) | CPT/HCPCS: 36415; 84153 ==

== ENCOUNTER 2021-01-16 07:20 | Emergency (ER) | payer OTHER ==
[2021-01-16 07:28] VITALS: BP 150/91; PULSE 86; RESP 18; TEMP 98
--- NOTE | 2021-01-16 07:45 | ED ---
General Adult HPI - General Chief complaint: Urogenital Stated complaint: Urogenital Time Seen by Provider: 01/16/21 07:30 Source: patient, RN notes reviewed, old records reviewed Mode of arrival: ambulatory Limitations: no limitations - History of Present Illness Initial comments: 60-year-old male with history of previous episodes of urinary retention presenting with inability to urinate and requesting a catheter. Patient states this happened in the past. He was unable to urinate this morning upon waking up. He's had no fever. No dysuria. No vomiting. - Related Data Home Medications Medication Instructions Recorded Confirmed Doxazosin [Cardura] 4 mg PO HS 09/20/18 11/20/19 Acetaminophen [Tylenol Extra 500 mg PO DIRECTED PRN 11/19/19 11/20/19 Strength] Allergies Allergy/AdvReac Type Severity Reaction Status Date / Time No Known Allergies Allergy Verified 01/16/21 07:28 Review of Systems ROS Statement: Those systems with pertinent positive or pertinent negative responses have been documented in the HPI. ROS Other: All systems not noted in ROS Statement are negative. Past Medical History Past Medical History: CVA/TIA, GERD/Reflux, Prostate Disorder Additional Past Medical History / Comment(s): migraines, "stroke 7 yrs ago-did not go to hospital"-no residual effects, hx kidney stones History of Any Multi-Drug Resistant Organisms: None Reported Past Surgical History: Back Surgery Additional Past Surgical History / Comment(s): back surgery x2, "lithotripsy to remove kidney stones" Past Anesthesia/Blood Transfusion Reactions: No Reported Reaction Past Psychological History: No Psychological Hx Reported Smoking Status: Never smoker Past Alcohol Use History: Rare Past Drug Use History: None Reported - Past Family History Mother Family Medical History: Cancer Father Family Medical History: Cancer General Exam Limitations: no limitations General appearance: alert, in no apparent distress Head exam: Present: atraumatic, normocephalic Eye exam: Present: normal appearance, PERRL ENT exam: Present: normal exam Neck exam: Present: normal inspection. Absent: tenderness, meningismus Respiratory exam: Present: normal lung sounds bilaterally. Absent: respiratory distress, wheezes Cardiovascular Exam: Present: regular rate, normal rhythm GI/Abdominal exam: Present: soft. Absent: distended, tenderness, guarding Extremities exam: Present: normal inspection, normal capillary refill. Absent: pedal edema, calf tenderness Back exam: Present: normal inspection Neurological exam: Present: alert, oriented X3, CN II-XII intact. Absent: motor sensory deficit Skin exam: Present: warm, dry, intact. Absent: cyanosis, diaphoretic Course Vital Signs 01/16/21 07:24 Temperature 98.0 F Pulse Rate 86 Respiratory 18 Rate Blood Pressure 150/91 O2 Sat by Pulse 98 Oximetry Medical Decision Making - Medical Decision Making 60-year-old male with history concerning for urinary retention. Suresh catheter placed the emergency department with significant output, approximately 800 mL of urine. Patient feels 100% better. Urinalysis is showing endoscopic hematuria greater than 182 red cells. Urine culture will be obtained results pending. Patient will follow with urology. - Lab Data Lab Results 01/16/21 Range/Units 07:59 Urine Color Yellow Urine Appearance Cloudy (Clear) Urine pH 5.0 (5.0-8.0) Ur Specific [place] 1.009 (1.001-1.035) Urine Protein Negative (Negative) Urine Glucose (UA) Negative (Negative) Urine Ketones Negative (Negative) Urine Blood Large H (Negative) Urine Nitrite Negative (Negative) Urine Bilirubin Negative (Negative) Urine Urobilinogen <2.0 (<2.0) mg/dL Ur Leukocyte Esterase Negative (Negative) Urine RBC >182 H (0-5) /hpf Urine WBC 4 (0-5) /hpf Urine Bacteria Rare H (None) /hpf Urine Mucus Rare H (None) /hpf Disposition Clinical Impression: Acute retention of urine Disposition: HOME SELF-CARE Condition: Poor Instructions (If sedation given, give patient instructions): Urinary Retention in Men (ED) Is patient prescribed a controlled substance at d/c from ED?: No Referrals: Dennys Francisco MD [Primary Care Provider] - 1-2 days Shawn Louis MD [STAFF PHYSICIAN] - 1-2 days Time of Disposition: 08:24
[2021-01-16 08:16] LABS: Appearance,Urine Cloudy (Clear); Bacteria,Urine Rare /hpf; Bilirubin,Urine Negative (Negative); Blood,Urine Large (Negative); Color,Urine Yellow; Glucose,Urine (UA) Negative (Negative); Ketones,Urine Negative (Negative); Leukocyte Esterase,Urine Negative (Negative); Mucus,Urine Rare /hpf; Nitrite,Urine Negative (Negative); Protein,Urine Negative (Negative); RBC,Urine >182 /hpf (0-5); Specific Gravity,Urine 1.009 (1.001-1.035); Urobilinogen,Urine <2.0 mg/dL (<2.0); WBC,Urine 4 /hpf (0-5)
== END 2021-01-16 08:32 | disposition home or self-care (01) ==
LOC: EC 07:20
DX: R33.9 Retention of urine, unspecified (principal); K21.9 Gastro-esophageal reflux disease without esophagitis; G43.909 Migraine, unspecified, not intractable, without status migrainosus; Z87.442 Personal history of urinary calculi; Z86.73 Personal history of transient ischemic attack (TIA), and cerebral infarction without residual deficits
CPT/HCPCS: 51702; 81001; 99283

== ENCOUNTER → 2021-11-01 | Outpatient (CLI) | payer OTHER ==
--- NOTE | 2021-11-01 12:34 | XR ---
EXAMINATION TYPE: XR KUB DATE OF EXAM: 11/01/2021 COMPARISON: X-ray dated 11/01/2019 INDICATION: Kidney stones TECHNIQUE: Supine views of the abdomen and pelvis FINDINGS: Left pelvic phleboliths, appreciated previously. The previously seen urinary bladder calculi are not appreciated today. No definite radiodense urinary calculi by this x-ray. Arterial atherosclerotic calcifications. Furthe r CT assessment can be considered if clinically required. IMPRESSION: As above.
== END | disposition home or self-care (01) ==
LOC: RADXRMAIN 10:41
PROVIDERS: ATTEND Urology
DX: N20.0 Calculus of kidney (principal)
CPT/HCPCS: 74018